=== PATIENT | male | born 1970 | race Asian ===

== ENCOUNTER 2017-12-20 19:25 | Emergency (ER) | payer OTHER ==
[~2017-12-20] VITALS: Ht 172.7 cm; Wt 83.5 kg
[2017-12-20] MEDS ORDERED: NORVASC2.5 MG PO (20:39)
[2017-12-20] MEDS ORDERED: LISINOPRIL10 MG PO (20:39)
[2017-12-20] MEDS ORDERED: PREDNISONE 20 M20 MG PO (20:39)
[2017-12-20] MEDS ORDERED: ACID REFLUX (20:40)
[2017-12-20 21:12] VITALS: BP 126/74
== END 2017-12-20 21:13 | disposition home or self-care (01) ==
LOC: ER 19:25
DX: L25.9 Unspecified contact dermatitis, unspecified cause (principal); I10 Essential (primary) hypertension

== ENCOUNTER 2020-06-07 08:29 | Emergency (ER) | payer OTHER ==
[~2020-06-07] VITALS: Ht 172.7 cm; Wt 88.0 kg
[~2020-06-07 08:29] MED LIST: ACID REFLUX; LISINOPRIL10 MG PO; NORVASC2.5 MG PO; PREDNISONE 20 M20 MG PO
[2020-06-07 08:31] VITALS: BP 162/105
[2020-06-07] MEDS ORDERED: MOBIC15 MG PO (09:20)
== END 2020-06-07 09:35 | disposition home or self-care (01) ==
LOC: ER 08:29
DX: M77.8 Other enthesopathies, not elsewhere classified (principal); M79.641 Pain in right hand; M79.644 Pain in right finger(s); I10 Essential (primary) hypertension; Z79.899 Other long term (current) drug therapy